=== PATIENT | female | born 1990 | race Caucasian/White ===

== ENCOUNTER 2021-08-30 17:29 | Emergency (ER) | payer MEDICAID, SELFPAY ==
[~2021-08-30] VITALS: Ht 170.2 cm; Wt 55.3 kg
[2021-08-30 17:49] VITALS: BP 126/84
--- NOTE | 2021-08-30 18:05 | NUR ---
31 Y/O F BIB SELF FOR C/O N/V/D X 3 DAYS. C/O [place], DENIES CP AT THIS TIME. LAST BM ON 08/29 WAS BLACK DIARRHEA PER PT. HAS HAD A CHANGE IN HEARING, NO DISCHARGE OF BLEEDING IN EARS AT THIS TIME. PT ABLE TO HEAR AT NORMAL TONE OF VOICE. ABD IS SOFT AND TENDER TO TOUCH X 4 QUADRANTS. + FLATUS, + BS X 4 QUADRANTS. AOX4, ABLE TO MAKE ALL NEEDS KNOWN. PMH: DENIES ALLERGIES: PCNS
--- NOTE | 2021-08-30 18:07 | NUR ---
ERMD AT BEDSIDE ASSESSING PT
[2021-08-30] MEDS ORDERED: ONDANSETRON 4 MG ODT PO ONE (18:10)
[2021-08-30] MEDS ORDERED: KETOROLAC 30 MG/ML VIAL IM ONE (18:10)
--- NOTE | 2021-08-30 18:29 | NUR ---
URINE GIVEN TO TECH. TECH AT BEDSIDE DRAWING BLOOD.
--- NOTE | 2021-08-30 18:30 | NUR ---
ASSISTED LAB TO DRAW BLOOD. HANDED TO [email or web address]
[2021-08-30 19:12] LABS: BASOPHILS % (AUTO) 0.4 % (0.0-2.0); EOSINOPHILS # (AUTO) 0.4 K/uL (0-0.4); EOSINOPHILS % (AUTO) 5.1 % (0.0-4.0); HEMATOCRIT 40.7 % (36-48); HEMOGLOBIN 13.5 g/dL (12.0-16.0); LYMPHOCYTES # (AUTO) 1.9 K/uL (2.5-16.5); LYMPHOCYTES % (AUTO) 22.7 % (20.5-51.1); MEAN CORPUSCULAR HEMOGLOBIN 31 pg (27-31); MEAN CORPUSCULAR HGB CONC 33 g/dL (33-37); MEAN CORPUSCULAR VOLUME 92.6 fL (80-94); MONOCYTES # (AUTO) 1.4 K/uL (0.8-1.0); MONOCYTES % (AUTO) 16.6 % (1.7-9.3); NEUTROPHILS # (AUTO) 4.6 K/uL (1.8-7.7); NEUTROPHILS % (AUTO) 55.2 % (42.2-75.2); PLATELET COUNT (AUTO) 181 K/uL (140-450); RED BLOOD CELL COUNT(AUTO) 4.39 MIL/uL (4.20-5.40); WHITE BLOOD COUNT (AUTO) 8.3 K/uL (4.8-10.8)
--- NOTE | 2021-08-30 19:17 | NUR ---
CALLED LAB AND THEY ARE RUNNING THE LABS SHIRA.
--- NOTE | 2021-08-30 19:26 | NUR ---
Pt report given to TARYN ALEGRE. Transfer of care at this time.
[2021-08-30 19:27] LABS: CARBON DIOXIDE 25.3 mmol/L (21-32); CREATININE 0.7 mg/dL (0.6-1.3); POTASSIUM 3.3 mmol/L (3.5-5.1); TOTAL BILIRUBIN 0.4 mg/dL (0.0-1.0)
[2021-08-30 19:55] LABS: APPEARANCE,URINE SL CLOUDY (CLEAR); BILIRUBIN,URINE 1+ (NEGATIVE); BLOOD, URINE NEGATIVE (NEGATIVE); COLOR,URINE DARK YELLOW (YELLOW); LEUKOCYTE ESTERASE ,URINE NEGATIVE (NEGATIVE); NITRITE, URINE NEGATIVE (NEGATIVE); UGLUCOSE NEGATIVE (NEGATIVE)
--- NOTE | 2021-08-30 20:00 | NUR ---
RESTING COMFORTABLY AWAITING REEVAL AND DISPOSITION.
[2021-08-30] MEDS ORDERED: NAPR-54 PO (20:46)
[2021-08-30] MEDS ORDERED: ONDA-24 SL (20:46)
[2021-08-30 21:00] VITALS: BP 115/70
--- NOTE | 2021-08-30 21:00 | NUR ---
Patient discharged with v/s stable. Written and verbal after care instructions given and explained. Patient alert, oriented and verbalized understanding of instructions. Ambulatory with steady gait. All questions addressed prior to discharge. ID band removed. Patient advised to follow up with PMD. Rx of NAPROSYN & ZOFRAN given. Patient educated on indication of medication including possible reaction and side effects. Opportunity to ask questions provided and answered.
== END 2021-08-30 21:00 | disposition home or self-care (01) ==
LOC: MED 17:29
DX: R10.9 Unspecified abdominal pain (principal); R11.0 Nausea; R51.9 Headache, unspecified; Z88.1 Allergy status to other antibiotic agents; Z79.899 Other long term (current) drug therapy
CPT/HCPCS: 36415; 80053; 81003; 81025; 83690; 85025; 96372; 99283; J1885; Q0162